=== PATIENT | male | born 1950 | race African-American/Black ===

== ENCOUNTER 2020-05-14 10:39 | Inpatient (IN) | payer MEDICARE, MEDICAID ==
[~2020-05-14] VITALS: Ht 170.2 cm; Wt 96.3 kg
[2020-05-14] MEDS: NITROGLYCERIN 0.4MG TABLET SL SL PRN ×2 (11:13→11:19)
[2020-05-14] MEDS ORDERED: ASPIRIN 81MG TABLET PO ONE (11:15)
[2020-05-14] MEDS ORDERED: MORPHINE SULFATE 4 MG/ML CPJ (NOT FOR IM USE) IV STA (11:22)
[2020-05-14] MEDS ORDERED: ONDANSETRON HCL 4MG/2ML INJ IV STA (11:22)
[2020-05-14 11:33] LABS: BASOPHILS % 0.9 % (0.0-2.0); HEMATOCRIT. 41.2 % (42.0-52.0); LYMPHOCYTES % 37.4 % (20.0-50.0); MEAN CORPUSCULAR HEMOGLOBIN 31.5 pg (28.0-32.0); MEAN CORPUSCULAR VOLUME 92.8 fL (80.0-94.0); MEAN PLATELET VOLUME 8.3 fl (7.4-10.4); MONOCYTES % 9.6 % (2.0-8.0); NEUTROPHILS % 49.1 % (40.0-76.0); PLATELET 181 x1000/uL (130-400); RED BLOOD CELL COUNT 4.44 mill/uL (4.7-6.1); RED CELL DISTRIBUTION WIDTH 13.6 % (11.6-14.6)
[2020-05-14 11:38] LABS: CHLORIDE 112 mEq/L (98-107)
[2020-05-14] MEDS ORDERED: LORAZEPAM 2MG/ML CPJ IV ONE (13:15)
[2020-05-14] MEDS ORDERED: ENOXAPARIN 120MG/0.8ML SYR SUBCUT ONE (14:15)
[2020-05-14 15:58] LABS: *AMPHETAMINES SCREEN URINE NEGATIVE (NEGATIVE); *BARBITURATES SCREEN URINE NEGATIVE (NEGATIVE)
[2020-05-14 15:59] LABS: *BENZODIAZEPINES SCREEN URINE NEGATIVE (NEGATIVE); *COCAINE SCREEN URINE NEGATIVE (NEGATIVE); CANNABINOID URINE SCREEN NEGATIVE (NEGATIVE); METHADONE URINE SCREEN NEGATIVE (NEGATIVE); OPIATES URINE SCREEN PRESUMTIVE POSITIVE (NEGATIVE); PHENCYCLIDINE URINE SCREEN NEGATIVE (NEGATIVE)
[2020-05-14 16:00] VITALS: BP 174/116
[2020-05-14] MEDS ORDERED: CLONIDINE 0.2MG TABLET PO PRN ×2 (16:00→17:30)
[2020-05-14 17:45] VITALS: BP 174/116
[2020-05-14] MEDS ORDERED: CARV3.1242 MT (18:32)
[2020-05-14] MEDS ORDERED: AMLO2.5T2 MT (18:32)
[2020-05-14] MEDS ORDERED: FURO-152 MT (18:32)
[2020-05-14] MEDS: AMLODIPINE 10MG TABLET PO SCH (18:38)
[2020-05-14 20:00] VITALS: BP 124/78
[2020-05-14] MEDS: CARVEDILOL 3.125 MG TABLET PO SCH (21:54)
[2020-05-14] MEDS: HYDROCODONE/ACETAMINOPHEN 5/325MG TABLET PO PRN (21:54)
[2020-05-15] VITALS (9 sets, daily range): BP systolic 107–133; BP diastolic 63–89
[2020-05-15] MEDS: HYDROCODONE/ACETAMINOPHEN 5/325MG TABLET PO PRN ×2 (04:16→10:39)
[2020-05-15 06:47] LABS: BASOPHILS % 0.5 % (0.0-2.0); EOSINOPHILS % 1.5 % (0.0-5.0); HEMATOCRIT. 38.5 % (42.0-52.0); HEMOGLOBIN. 12.9 g/dL (14.0-18.0); LYMPHOCYTES % 27.5 % (20.0-50.0); MEAN CORPUSCULAR HEMOGLOBIN 31.1 pg (28.0-32.0); MEAN CORPUSCULAR VOLUME 92.8 fL (80.0-94.0); MEAN PLATELET VOLUME 8.2 fl (7.4-10.4); MONOCYTES % 11.2 % (2.0-8.0); NEUTROPHILS % 59.3 % (40.0-76.0); PLATELET 192 x1000/uL (130-400); RED BLOOD CELL COUNT 4.15 mill/uL (4.7-6.1); RED CELL DISTRIBUTION WIDTH 13.8 % (11.6-14.6)
[2020-05-15 06:54] LABS: CHLORIDE 102 mEq/L (98-107)
[2020-05-15 07:05] LABS: LDL CHOLESTEROL 114 mg/dL (5-100)
[2020-05-15 07:06] LABS: HDL CHOLESTEROL 29 mg/dL (40-59)
[2020-05-15 07:09] LABS: CREATINE KINASE MB FRACTION 290.2 ng/mL (0.5-3.6)
[2020-05-15 07:21] LABS: CREATINE KINASE 2492 IU/L (39-308)
[2020-05-15] MEDS: AMLODIPINE 10MG TABLET PO SCH (08:44)
[2020-05-15] MEDS: CARVEDILOL 3.125 MG TABLET PO SCH ×2 (08:44→20:06)
[2020-05-15] MEDS: ASPIRIN 81MG TABLET PO SCH (08:44)
[2020-05-15] MEDS ORDERED: ENOXAPARIN 40MG/0.4ML SYR SUBCUT SCH (09:00)
[2020-05-15] MEDS ORDERED: ENOXAPARIN 30MG/0.3ML SYR SUBCUT SCH (09:00)
[2020-05-15] MEDS ORDERED: HEPARIN SODIUM 1,000 UNIT/1ML VIAL IV ONE (10:05)
[2020-05-15] MEDS ORDERED: NITROGLYCERIN 50MCG/ML 10ML VIAL (CATH LAB) IV ONE (11:45)
[2020-05-15] MEDS ORDERED: MIDAZOLAM HCL 2 MG/2 ML VIAL ONE (12:57)
[2020-05-15] MEDS ORDERED: FENTANYL CITRATE/PF 50MCG/ML 2ML VIAL ONE (12:57)
[2020-05-15] MEDS ORDERED: LIDOCAINE HCL 1% 20ML VIAL (Pyxis) INJ ONE (12:58)
[2020-05-15] MEDS ORDERED: IODIXANOL 320MG/ML 100 ML BOTTLE IV ONE ×2 (12:58→14:04)
[2020-05-15] MEDS ORDERED: IOHEXOL-300 100 ML BOTTLE ONE (13:38)
[2020-05-15] MEDS ORDERED: ATROPINE SULFATE 0.1MG/ML 10ML DISP.SYRIN ONE (13:39)
[2020-05-15] MEDS ORDERED: DIPHENHYDRAMINE 50MG/ML VIAL ONE (13:43)
[2020-05-15] MEDS ORDERED: EPTIFIBATIDE 100 ML IV ONE (13:53)
[2020-05-15] MEDS ORDERED: EPTIFIBATIDE 2 MG/ML 10ML VIAL IV ONE (14:04)
[2020-05-15] MEDS ORDERED: ATROPINE SULFATE 1MG/10ML SYR IV PRN (14:30)
[2020-05-15] MEDS ORDERED: ACETAMINOPHEN 325MG TABLET PO PRN (14:30)
[2020-05-15] MEDS ORDERED: CLOPIDOGREL 75MG TABLET ONE (14:36)
[2020-05-15] MEDS: FAMOTIDINE 20MG TABLET PO SCH (15:28)
[2020-05-15] MEDS: SODIUM CHLORIDE 0.9% 1,000 ML IV SCH ×2 (15:29→23:20)
[2020-05-15] MEDS ORDERED: ATORVASTATIN CALCIUM 40MG TABLET PO SCH (21:00)
[2020-05-15] MEDS ORDERED: LACTULOSE 20G/30ML UDC PO PRN (21:15)
[2020-05-15] MEDS: MAGNESIUM/ALUMINUM HYDROXIDE/SIMETHICONE 30ML UDC PO PRN (21:37)
[2020-05-16] VITALS (11 sets, daily range): BP systolic 105–132; BP diastolic 48–82
[2020-05-16] MEDS: MAGNESIUM/ALUMINUM HYDROXIDE/SIMETHICONE 30ML UDC PO PRN (07:27)
[2020-05-16] MEDS: ASPIRIN 81MG TABLET PO SCH (09:06)
[2020-05-16] MEDS: FAMOTIDINE 20MG TABLET PO SCH (09:07)
[2020-05-16] MEDS: CARVEDILOL 3.125 MG TABLET PO SCH ×2 (09:07→22:33)
[2020-05-16] MEDS: CLOPIDOGREL 75MG TABLET PO SCH (09:07)
[2020-05-16] MEDS: AMLODIPINE 10MG TABLET PO SCH (09:07)
[2020-05-16] MEDS: SODIUM CHLORIDE 0.9% 1,000 ML IV SCH ×2 (09:45→19:50)
[2020-05-16 10:44] LABS: BASOPHILS % 0.4 % (0.0-2.0); EOSINOPHILS % 2.2 % (0.0-5.0); HEMATOCRIT. 36.5 % (42.0-52.0); HEMOGLOBIN. 12.5 g/dL (14.0-18.0); LYMPHOCYTES % 21.4 % (20.0-50.0); MEAN CORPUSCULAR HEMOGLOBIN 31.6 pg (28.0-32.0); MEAN CORPUSCULAR VOLUME 92.4 fL (80.0-94.0); MEAN PLATELET VOLUME 8.2 fl (7.4-10.4); MONOCYTES % 7.2 % (2.0-8.0); NEUTROPHILS % 68.8 % (40.0-76.0); PLATELET 164 x1000/uL (130-400); RED BLOOD CELL COUNT 3.95 mill/uL (4.7-6.1); RED CELL DISTRIBUTION WIDTH 13.9 % (11.6-14.6)
[2020-05-16] MEDS ORDERED: FLU45SYR IM (14:35)
[2020-05-16] MEDS ORDERED: CHLO50TA PO (14:35)
[2020-05-16] MEDS ORDERED: AMLO10TA80 PO (14:35)
[2020-05-16] MEDS ORDERED: NEOM10SO7 RIGHT EAR (14:35)
[2020-05-16] MEDS ORDERED: BENA20TA10 PO (14:35)
[2020-05-16] MEDS ORDERED: HYDR-4001 PO (14:35)
[2020-05-16] MEDS ORDERED: LORA10TA7 PO (14:35)
[2020-05-16] MEDS ORDERED: ALBU90AE2 (14:35)
[2020-05-16] MEDS ORDERED: DIGO-26 PO (14:35)
[2020-05-16] MEDS ORDERED: TAMSULOSIN PO (14:35)
[2020-05-16] MEDS ORDERED: AMOX1TAB16 PO (14:35)
[2020-05-16] MEDS ORDERED: CLOP75TA33 PO (14:35)
[2020-05-16] MEDS ORDERED: TIOT18CA3 IH (14:35)
[2020-05-16] MEDS ORDERED: FURO40TA5 PO (14:35)
[2020-05-16] MEDS ORDERED: LEVO750T46 PO (14:35)
[2020-05-16] MEDS ORDERED: ATOR-2 PO (14:35)
[2020-05-16] MEDS ORDERED: IBUP-2029 PO (14:35)
[2020-05-16] MEDS ORDERED: CONSTULOSE (14:35)
[2020-05-16] MEDS ORDERED: P20 PO (14:35)
[2020-05-16] MEDS ORDERED: CARV25TA47 PO (14:35)
[2020-05-16 15:33] LABS: PROTHROMBIN TIME 10.2 sec (9.6-11.0)
[2020-05-16 15:35] LABS: CHLORIDE 106 mEq/L (98-107)
[2020-05-16 16:22] LABS: CLARITY URINE CLEAR (CLEAR); COLOR URINE YELLOW (YELLOW); KETONES URINE NEGATIVE (NEGATIVE); LEUKOCYTE ESTERASE URINE NEGATIVE (NEGATIVE); NITRITE URINE NEGATIVE (NEGATIVE); OCCULT BLOOD URINE 1+ (NEGATIVE); PH URINE 6.5 (4.5-8.0); PROTEIN URINE 1+ (NEGATIVE); SPECIFIC GRAVITY URINE 1.005 (1.005-1.030); UROBILINOGEN URINE 0.2 E.U./dL (0.2-1.0)
[2020-05-16] MEDS ORDERED: LORAZEPAM 2MG/ML CPJ IV PRN (16:45)
[2020-05-16] MEDS ORDERED: ONDANSETRON HCL 4MG/2ML INJ IV PRN (16:45)
[2020-05-16] MEDS ORDERED: LACTULOSE 20G/30ML UDC PO PRN (16:45)
[2020-05-16] MEDS ORDERED: DEXTROSE 50% WATER 50ML SYRINGE IV PRN (16:45)
[2020-05-16] MEDS ORDERED: IPRATROPIUM/ALBUTEROL 0.5-3(2.5)MG/3ML NEB HHN PRN (16:45)
[2020-05-16] MEDS ORDERED: DIPHENHYDRAMINE 50MG/ML VIAL IV PRN (16:45)
[2020-05-16] MEDS: BLOOD SUGAR DIAGNOSTIC STRIP TEST SCH ×2 (16:50→20:55)
[2020-05-16] MEDS: INSULIN LISPRO 100 UNITS/ML SUBCUT SCH ×2 (17:20→20:55)
[2020-05-17] VITALS (9 sets, daily range): BP systolic 117–153; BP diastolic 70–95
[2020-05-17] MEDS: BLOOD SUGAR DIAGNOSTIC STRIP TEST SCH ×2 (05:56→11:50)
[2020-05-17 06:57] LABS: HEMATOCRIT 35.5 % (42.0-52.0); MEAN CORPUSCULAR HEMOGLOBIN 31.4 pg (28.0-32.0); MEAN CORPUSCULAR VOLUME 92.9 fL (80.0-94.0); PLATELET 171 x1000/uL (130-400); RED BLOOD CELL COUNT 3.82 mill/uL (4.7-6.1); RED CELL DISTRIBUTION WIDTH 13.9 % (11.6-14.6)
[2020-05-17 07:07] LABS: CHLORIDE 107 mEq/L (98-107)
[2020-05-17] MEDS: INSULIN LISPRO 100 UNITS/ML SUBCUT SCH ×2 (07:20→12:16)
[2020-05-17 07:21] LABS: CREATINE KINASE MB FRACTION 33.3 ng/mL (0.5-3.6)
[2020-05-17 07:34] LABS: CREATINE KINASE 1700 IU/L (39-308)
[2020-05-17] MEDS: FAMOTIDINE 20MG TABLET PO SCH (08:06)
[2020-05-17] MEDS: AMLODIPINE 10MG TABLET PO SCH (08:07)
[2020-05-17] MEDS: CARVEDILOL 3.125 MG TABLET PO SCH (08:07)
[2020-05-17] MEDS: ASPIRIN 81MG TABLET PO SCH (08:07)
[2020-05-17] MEDS: CLOPIDOGREL 75MG TABLET PO SCH (08:07)
[2020-05-17] MEDS ORDERED: CLOP75TA4 MT (11:18)
[2020-05-17] MEDS ORDERED: ASPI-1497 MT (11:18)
[2020-05-17] MEDS ORDERED: COR3 MT (12:52)
[2020-05-17] MEDS ORDERED: AMLO10TA4 MT (12:52)
[2020-05-17] MEDS ORDERED: FAMO-135 PO (12:52)
== END 2020-05-17 15:03 | disposition home or self-care (01) | DRG 246 ==
LOC: ER 10:53 → 5WST 13:58 → EDBEDREQ 14:00 → EDBEDREQTM 14:00 → ENRESERV 14:40 → 3WST 05-15 11:50
PROVIDERS: ADMIT Internal Medicine; ATTEND Internal Medicine
PROC: 027034Z Dilation of Coronary Artery, One Artery with Drug-eluting Intraluminal Device, Percutaneous Approach (ICD-10-PCS; principal; 2020-05-15)
PROC: 4A023N7 Measurement of Cardiac Sampling and Pressure, Left Heart, Percutaneous Approach (ICD-10-PCS; 2020-05-15)
DX: I21.4 Non-ST elevation (NSTEMI) myocardial infarction (principal); I50.33 Acute on chronic diastolic (congestive) heart failure; N17.0 Acute kidney failure with tubular necrosis; E44.0 Moderate protein-calorie malnutrition; M62.82 Rhabdomyolysis; I13.0 Hypertensive heart and chronic kidney disease with heart failure and stage 1 through stage 4 chronic kidney disease, or unspecified chronic kidney disease; E78.5 Hyperlipidemia, unspecified; E87.8 Other disorders of electrolyte and fluid balance, not elsewhere classified; F17.200 Nicotine dependence, unspecified, uncomplicated; I25.110 Atherosclerotic heart disease of native coronary artery with unstable angina pectoris; N18.3 Chronic kidney disease, stage 3 (moderate); R74.0 Nonspecific elevation of levels of transaminase and lactic acid dehydrogenase [LDH]; E11.9 Type 2 diabetes mellitus without complications; E66.01 Morbid (severe) obesity due to excess calories; I25.10 Atherosclerotic heart disease of native coronary artery without angina pectoris; K21.9 Gastro-esophageal reflux disease without esophagitis; D64.9 Anemia, unspecified; E11.22 Type 2 diabetes mellitus with diabetic chronic kidney disease; I25.2 Old myocardial infarction; Z95.1 Presence of aortocoronary bypass graft; Z68.33 Body mass index [BMI] 33.0-33.9, adult; Z95.5 Presence of coronary angioplasty implant and graft; Z79.899 Other long term (current) drug therapy; Z79.02 Long term (current) use of antithrombotics/antiplatelets
CPT/HCPCS: 36415; 71045; 76700; 80048; 80053; 80061; 80305; 81003; 82550; 82553; 82962; 83036; 84439; 84443; 84484; 85025; 85027; 85347; 92928; 93005; 93306; 93458; 93970; 99291; C1725; C1757; C1760; C1769; C1874; C1887; C1893; J0461; J1200; J1327; J1644; J1650; J2060; J2250; J2270; J2405; J3010; J3490; J7030; Q9967